=== PATIENT | male | born 1930 | race Caucasian/White ===

== ENCOUNTER 2016-09-26 16:12 | Emergency (ER) | payer MEDICARE ==
[~2016-09-26] VITALS: Ht 167.6 cm; Wt 79.8 kg
[~2016-09-26 16:12] MED LIST: ASPI-630 PO; ATOR10TA60 PO; CALC-157 PO; DONE5TAB56 PO; LOSA25TA4 PO; PANT20TA3 PO
--- NOTE | 2016-09-26 16:45 | PHYS DOC ---
General Chief Complaint: NEURO SYMPTOMS/DEFICITS Stated Complaint: possible CVA Time Seen by MD: 16:25 Source: patient, family Exam Limitations: no limitations Problems: History of Present Illness Initial Comments Pt is 86/M to ED with family for possible CVA. Family relays pt had L-sided ischemic-turned hemorrhagic CVA 4 mos ago, craniotomy at [facility] Dr Chin. Near full recovery, back at home has some mild residual right sided weakness. Has home PT/OT, also attends exercise classes daily. Pt woke feeling normal this morning, went to exercise class and returned home at 11:30. That is first time family noticed slight slur in his speech. Pt took a nap and home health was with him for 3 hours. After home health left family noticed pt with persistent slurred speech and difficulty with his balance. Gait (slightly shuffled as baseline) worsened to "very shuffled" and pt "would have missed the chair twice if family hadn't sat him down." Pt states that at this point he has no symptoms except for balance if he stands. No headache, no difficulty swallowing or facial symptoms, no noted upper extremity weakness. 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 NIHSS normal aside from 3pts deduction for peripheral vision 1pt dysarthria. ED VS: afebrile 71, 18, 129/62, 97% RA Timing/Duration: 4-6 hours Severity: moderate Modifying Factors: worse with movement, improves with rest Associated Symptoms: weakness, other Allergies: Coded Allergies: No Known Drug Allergies (Unverified , 04/06/15) Past Medical History Medical History: other (prostate cancer s/p radiation, dementia, GERD, TIA, HTN , HLP, MO) Surgical History: other (cardiac stent) Social History Smoker: quit greater than 1 year Alcohol: occasionally Drugs: none Review of Systems Constitutional: denies chills, denies fever, denies malaise EENTM: see HPI, denies eye pain, denies tearing, denies ear pain, denies ear discharge, denies nose pain, denies nose congestion, denies throat pain, denies mouth pain Respiratory: denies cough, denies shortness of breath, denies wheezing Cardiovascular: denies chest pain, denies palpitations, denies syncope Gastrointestinal: denies abdominal pain, denies diarrhea, denies nausea, denies vomiting Genitourinary: denies dysuria, denies frequency, denies hematuria Musculoskeletal: denies back pain, denies joint swelling, denies neck pain Psychiatric/Neurological: see HPI, denies headache Hematologic/Lymphatic: see HPI Physical Exam General Appearance: WD/WN, no apparent distress Eyes: bilateral eye normal inspection, bilateral eye PERRL, bilateral eye EOMI Ear, Nose, Throat: hearing grossly normal, normal ENT inspection, normal pharynx Neck: non-tender, supple Respiratory: normal breath sounds, no respiratory distress Cardiovascular: normal peripheral pulses, regular rate, rhythm Gastrointestinal: non tender, soft Back: no CVA tenderness, no vertebral tenderness Extremities: non-tender, normal inspection Neurologic/Psychiatric: 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 No attempt to walk pt in ED.) Skin: normal color, warm/dry Orders, Labs, Meds EKG: NSR 71 bpm, T inversion III and aVF no STEMI PATIENT: HAWA TO ACCOUNT: [id number] : 1930 LOCATION: ER AGE: 86 SEX: M EXAM STATUS: REG ER ORD. PHYSICIAN: FROYLAN CAMPBELL DO REASON: cva PROCEDURE: CT HEAD WO CONTRAST CT of the head without contrast, 09/26/2016: History: Mental status change Comparison is made to a study from 05/30/2016. There is moderate cerebral atrophy. There is encephalomalacia in the left cerebellar hemisphere compatible with an old infarct. There are moderate patchy lucencies in the deep white matter bilaterally compatible with chronic ischemic change. There is a small unchanged lucency in the right basal ganglia compatible with an old lacunar infarct. The ventricles are mildly prominent on a compensatory basis. There is no shift of the midline structures. There is no evidence of acute intracranial hemorrhage or mass effect. There is calcific plaquing of the distal internal carotid and vertebral arteries. IMPRESSION: 1. Cerebral atrophy with moderate chronic ischemic change in the deep white matter bilaterally. 2. Old left cerebellar infarct. 3. Old right basal ganglia lacunar infarct. 4. No new intracranial abnormality is detected. PQRS Compliance Statement: One or more of the following individualized dose reduction techniques were utilized for this examination: 1. Automated exposure control 2. Adjustment of the mA and/or kV according to patient size 3. Use of iterative reconstruction technique DICTATED AND SIGNED BY: GERSON CAZARES MD DATE: 09/26/16 3452 CC: FROYLAN CAMPBELL DO; JERRICA HAQUE MD ~ Chest AP: no acute cardiopulmonary process, interpreted by me Trop I 0.225, CRP 8.6, d-dimer 0.36, urine studies pending. 1720: Neurosurgery paged IMPRESSIONS: r/o CVA/TIA elevated Trop I with h/o CAD 1828: Pt discussed with Dr Nassar who accepts ICU admission for further eval/ tx. Will hold off on anticoagulation due to recent hemorrhagic CVA, will need cardio consult. (pt follows with Dr Sharon ASENCIO but requests admission locally). Departure Time of Disposition: 18:13 Disposition: 05 XFER OTHER Diagnosis: r/o CVA, elevated troponin I with h/o CAD Condition: GUARDED Additional Instructions: EMS transfer to [facility] ICU Dr Nassar is accepting. FROYLAN CAMPBELL DO September 26, 2016 16:45
[2016-09-26 16:54] LABS: BASO % 0 % (0-3); EOS # 0.2 x10^3/uL (0.0-0.7); EOS % 3 % (0-3); HEMATOCRIT 37.3 % (39.0-53.0); HEMOGLOBIN 12.3 g/dL (13.0-17.5); LYMPH % 14 % (24-48); MEAN CORPUSCULAR HEMOGLOBIN 30 pg (25-35); MEAN CORPUSCULAR HGB CONC 33 g/dL (31-37); MEAN CORPUSCULAR VOLUME 91 fL (79-100); MONO # 1.1 x10^3/uL (0.0-1.1); MONO % 14 % (0-9); NEUT # 5.3 x10^3uL (1.8-7.7); NEUT % 69 % (31-73); PLATELET COUNT 156 x10^3/uL (140-400); RED BLOOD COUNT 4.12 x10^6/uL (4.30-5.70); RED CELL DISTRIBUTION WIDTH 14.6 % (11.5-14.5); WHITE BLOOD COUNT 7.7 x10^3/uL (4.0-11.0)
[2016-09-26 17:05] LABS: ALBUMIN 3.2 g/dL (3.4-5.0); ALBUMIN/GLOBULIN RATIO 0.9 (1.0-1.7); C REACTIVE PROTEIN 8.6 mg/L (0-3.3); CALCIUM 8.5 mg/dL (8.5-10.1); GFR 70.7; TOTAL BILIRUBIN 0.3 mg/dL (0.2-1.0); TOTAL PROTEIN 6.7 g/dL (6.4-8.2)
[2016-09-26 17:24] LABS: AMPHETAMINE/METHAMPHETAMINE NEG (NEG); BARBITURATES NEG (NEG); BENZODIAZEPINES NEG (NEG); CANNABINOIDS NEG (NEG); COCAINE NEG (NEG); METHADONE NEG (NEG); OPIATES NEG (NEG); PHENCYCLIDINE NEG (NEG)
--- NOTE | 2016-09-26 17:30 | RAD ---
AP chest, 09/26/2016: History: CVA Comparison is made to a study from 05/30/2016. The heart is at the upper limits of normal in size. There is calcific plaquing of the aorta. The pulmonary vascularity is normal. No pulmonary infiltrates are seen. There is no evidence of pleural fluid. IMPRESSION: No acute cardiopulmonary abnormality is detected.
--- NOTE | 2016-09-26 17:50 | EKG ---
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
[2016-09-26 18:05] LABS: SEDIMENTATION RATE 15 (0-15)
[2016-09-26 20:00] VITALS: BP 125/76
== END 2016-09-26 20:20 | disposition short-term general hospital (02) ==
LOC: ER 16:12
DX: I63.9 Cerebral infarction, unspecified (principal); R79.89 Other specified abnormal findings of blood chemistry; I25.10 Atherosclerotic heart disease of native coronary artery without angina pectoris; K21.9 Gastro-esophageal reflux disease without esophagitis; I10 Essential (primary) hypertension; E78.5 Hyperlipidemia, unspecified; I25.2 Old myocardial infarction; Z87.891 Personal history of nicotine dependence
CPT/HCPCS: 36415; 70450; 71010; 80053; 80305; 82550; 82947; 83605; 84484; 85027; 85379; 85610; 85651; 85730; 86140; 93005; G0481; 99285-25

== ENCOUNTER 2017-08-30 17:37 | Emergency (ER) | payer MEDICARE ==
[~2017-08-30] VITALS: Ht 167.6 cm; Wt 78.5 kg
--- NOTE | 2017-08-30 17:39 | ED.ADGEN ---
Past History Past Medical History: CVA, Dementia, Hypertension, VT, TIA, Other Past Surgical History: Other Alcohol Use: Occasionally Drug Use: None Adult General Chief Complaint Chief Complaint " I fell and evgeny tore up this Rt arm..." HPI HPI Patient is a 87 year old male who presents with above hx and complaints multiple skin tears to Rt. arm after falling off planter and scraping arm against some bricks. Pt. is vascular intact. Does have edema. Has multiple a vascular skin flaps, and contusion to right forearm and elbow. Approximately 25 cm of laceration. Tetanus status is currently unknown. Patient does have a history of dementia. Patient is in the accompaniment of his daughter. Patient is right-hand dominant. Patient normally follows at [facility]. Review of Systems Review of Systems Constitutional: Denies fever or chills [] Eyes: Denies change in visual acuity, redness, or eye pain [] HENT: Denies nasal congestion or sore throat [] Respiratory: Denies cough or shortness of breath [] Cardiovascular: No additional information not addressed in HPI [] GI: Denies abdominal pain, nausea, vomiting, bloody stools or diarrhea [] : Denies dysuria or hematuria [] Musculoskeletal: Denies back pain or joint pain []complaints of right forearm contusion Integument: Denies rash or skin lesions complaints of multiple lacerations Neurologic: Denies headache, focal weakness or sensory changes [] Endocrine: Denies polyuria or polydipsia [] All other systems were reviewed and found to be within normal limits, except as documented in this note. Family History Family History Noncontributory Current Medications Current Medications Current Medications Medications (Trade) Dose Ordered Sig/Kristi Start Time Stop Time Status Last Admin Dose Admin Bupivacaine HCl (Sensorcaine Pf 0.75%) 10 ml STK-MED ONCE 08/30/17 17:55 08/30/17 17:56 DC Tetanus/ Diphtheria Toxoids Adsorbed (Tenivac Vial) 0.5 ml ONCE ONCE 08/30/17 19:00 08/30/17 19:01 DC Allergies Allergies Allergies Coded Allergies Type Severity Reaction Last Updated Verified No Known Drug Allergies 04/06/15 No Physical Exam Physical Exam Constitutional: no acute distress, non-toxic appearance. [] HENT: Normocephalic, atraumatic, bilateral external ears normal, oropharynx moist, no oral exudates, nose mild bleeding from [place] area- chronic problem Eyes: PERRLA, EOMI, conjunctiva normal, no discharge. [] Neck: Normal range of motion, no tenderness, supple, no stridor. [] Cardiovascular:Heart rate regular rhythm, no murmur [] Lungs & Thorax: Bilateral breath sounds clear to auscultation [] Abdomen: Bowel sounds normal, soft, no tenderness, no masses, no pulsatile masses. [] Skin: Warm, dry, no erythema, no rash. [] Multiple skin tears to right forearm as per history of present illness Back: No tenderness, no CVA tenderness. [] Extremities: No tenderness, no cyanosis, no clubbing, ROM intact, no edema. [] Arthritic changes. Right forearm contusions as per history of present illness Neurologic: Alert and oriented X 3, no gross motor or sensory function deficits from his baseline., . []Obvious short-term memory problems. Walks with a wide gait. Psychologic: Affect normal, judgement normal, mood normal. [] Current Patient Data Vital Signs Vital Signs Date Time Temp Pulse Resp B/P (MAP) Pulse Ox O2 Delivery O2 Flow Rate FiO2 08/30/17 20:30 98.4 76 20 132/72 (92) 98 Room Air EKG EKG [] Radiology/Procedures Radiology/Procedures My interpretation of x-ray of forearm shows no obvious displaced fracture or dislocation. Does have arthritic changes. Edema noted. Course & Med Decision Making Course & Med Decision Making Pertinent Labs and Imaging studies reviewed. (See chart for details) Procedure note suture repair-irrigated with normal saline. Injected edges of lacerations with Sensorcaine lidocaine. Re-irrigated lacerations and scrubbed with surgical soap and iodine. Wound reirrigated with normal saline in range of motion. Placed approximately 30 continuous sutures to approximate the wound edges. Dressing applied. Keep wound clean and dry. Sutures out in 10 days. Monitor closely for infection. Wounds are at high risk for infection due to contusion and contamination. Apply Polysporin 4 times a day after dressing removed. Dressing may require hydrogen peroxide to remove after day 3. Must remove dressing immediately if it becomes wet. Patient follow-up primary care. Return if any concerns. [] Final Impression Final Impression 1. Laceration[]- Avulsion Rt forearm 2. Contusion 3. History dementia Problems: Dragon Disclaimer Dragon Disclaimer This electronic medical record was generated, in whole or in part, using a voice recognition dictation system. THUY CARPENTER MD Aug 30, 2017 17:39
[2017-08-30] MEDS ORDERED: BUPIVACAINE PF 0.75% 10 ML VIAL ONE (17:55)
[2017-08-30] MEDS ORDERED: TETANUS AND DIPHTHERIA TOX/PF 0.5 ML VIAL. VAX IM ONE (19:00)
[2017-08-30 20:30] VITALS: BP 132/72
--- NOTE | 2017-08-31 10:51 | RAD ---
FOREARM RIGHT Clinical Indication: fall, laceration Comparison: None. Findings: No acute forearm fracture or malalignment. Small ossific density seen proximal to the triquetrum/pisiform. The joint spaces are maintained. Bony mineralization is normal for the patient's age. Soft tissue irregularity along the ulnar-sided soft tissues may relate to known laceration. No radiopaque foreign body. IMPRESSION: 1. No acute forearm fracture or malalignment. 2. Soft tissue irregularity along the ulnar-sided soft tissues may relate to known laceration. No radiopaque foreign body. 3. Small ossific density seen proximal to the triquetrum/pisiform could relate to remote injury or degenerative changes. This does not appear to be in the region of concern. If there is clinical concern, dedicated wrist radiographs could be obtained.
== END 2017-08-30 20:30 | disposition home or self-care (01) ==
LOC: ER 17:37
DX: S51.811A Laceration without foreign body of right forearm, initial encounter (principal); S50.01XA Contusion of right elbow, initial encounter; F03.90 Unspecified dementia, unspecified severity, without behavioral disturbance, psychotic disturbance, mood disturbance, and anxiety; I10 Essential (primary) hypertension; I25.2 Old myocardial infarction; Z86.73 Personal history of transient ischemic attack (TIA), and cerebral infarction without residual deficits; W17.89XA Other fall from one level to another, initial encounter; Y93.89 Activity, other specified; Y99.8 Other external cause status; Y92.89 Other specified places as the place of occurrence of the external cause
CPT/HCPCS: 12006; 73090; 99284